=== PATIENT | male | born 1930 | race Caucasian/White ===

== ENCOUNTER 2017-10-25 16:12 | Emergency (ER) | payer MEDICARE, OTHER ==
--- NOTE | 2017-10-25 16:59 | ED ---
ENT HPI - General Source: patient, RN notes reviewed, old records reviewed Mode of arrival: wheelchair Limitations: no limitations <Ekta Johnson - Last Filed: 10/25/17 19:10> <Avi Santoro - Last Filed: 10/25/17 19:31> - General Chief complaint: Dental/Oral Stated complaint: Left side face numb Time Seen by Provider: 10/25/17 16:36 - History of Present Illness Initial comments: This Patient is an 87-year-old male with a history of atrial fibrillation one week after a dental procedure, a filling on his right molar #3 presents emergency department today chief complaint of intermittent abdominal pain radiating from the upper and lower teeth. He reports he's also been having some left ear pain. Patient states that he has no chest pain or shortness of breath. He has had a stroke and has had chronic left-sided facial droop. Patient reports that this is nothing new or changed. He denies any other symptoms including headache or fever or chills. He states that he feels like some of his cheeks are swelling. Denies any nausea or vomiting. He has been taking his Coumadin. He does have his level checked frequently by Dr. Tejada. ( Ekta Johnson) - Related Data Previous Rx's Medication Instructions Recorded Penicillin V Potassium [Pen Vee K] 500 mg PO QID #40 tablet 10/25/17 Allergies Allergy/AdvReac Type Severity Reaction Status Date / Time No Known Allergies Allergy Verified 10/25/17 16:19 Review of Systems ROS Other: All systems not noted in ROS Statement are negative. <Ekta Johnson - Last Filed: 10/25/17 19:10> ROS Other: All systems not noted in ROS Statement are negative. <Avi Santoro - Last Filed: 10/25/17 19:31> ROS Statement: Those systems with pertinent positive or pertinent negative responses have been documented in the HPI. 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 Absent: scleral icterus, conjunctival injection, periorbital swelling ENT exam: Present: normal exam, mucous membranes moist, other (Patient has very poor dentition. He does have evidence of a left-sided facial droop. Patient reports that chronic. I asked the son and he also states that that is chronic. No acute changes.). Absent: normal oropharynx (Patient is reported dentition. Recent filling over tooth #3. He has multiple dental caries and rotted teeth on the upper left and lower left jaw.) Neck exam: Present: normal inspection. Absent: tenderness, meningismus, lymphadenopathy Respiratory exam: Present: normal lung sounds bilaterally. Absent: respiratory distress, wheezes, rales, rhonchi, stridor Cardiovascular Exam: Present: regular rate, normal rhythm, normal heart sounds. Absent: systolic murmur, diastolic murmur, rubs, gallop, clicks GI/Abdominal exam: Present: soft, normal bowel sounds. Absent: distended, tenderness, guarding, rebound, rigid Extremities exam: Present: normal inspection, full ROM, normal capillary refill. Absent: tenderness, pedal edema, joint swelling, calf tenderness Back exam: Present: normal inspection Neurological exam: Present: alert, oriented X3, CN II-XII intact Psychiatric exam: Present: normal affect Skin exam: Present: warm, dry, intact, normal color. Absent: rash <Ekta Johnson - Last Filed: 10/25/17 19:10> <Avi Santoro - Last Filed: 10/25/17 19:31> - General Exam Comments Initial Comments: 87-year-old male. Alert and oriented no acute distress. (Ekta Johnson) Course <Ekta Johnson - Last Filed: 10/25/17 19:10> <Avi Santoro - Last Filed: 10/25/17 19:31> Vital Signs 10/25/17 10/25/17 16:16 18:00 Temperature 98.4 F 98.6 F Pulse Rate 102 H 99 Respiratory 20 16 Rate Blood Pressure 183/70 176/80 O2 Sat by Pulse 96 98 Oximetry - Reevaluation(s) Reevaluation #1: 10/25/17 19:28 PA supervision: I personally evaluate the patient and examined the patient. I reviewed and agree with the PAs findings including all diagnostic interpretations and treatment plans as written was otherwise stated. He did also discuss the findings with the patient's son who was present. I also did review the EKG which did show atrial fibrillation. (Avi Santoro) Medical Decision Making <Ekta Johnson - Last Filed: 10/25/17 19:10> <Avi Santoro - Last Filed: 10/25/17 19:31> - Medical Decision Making 79-year-old male with history of A. fib presents today with left-sided tooth dental pain. He does have a history of stroke with chronic left-sided facial droop after a stroke. This family reports that it is chronic. He has no other focal neurological findings. He does have very poor dentition. Likely infection from his teeth are causing the pain. Patient was evaluated by myself and Dr. Santoro. We did perform an EKG which shows A. fib with no acute changes. This is stable for the Patient. Patient will be started on Pen-Vee K and prescription will be written for and I discussed following up with his PCP. Continuing Tylenol for the pain. Patient's family agrees treatment plan will comply. Return parameters were discussed. (Ekta Johnson) 10/25/17 18:07 EKG shows atrial fibrillation. Abnormal EKG. She remained on this for many repair of ECTOPY QRS ration 80. QT QTC 370/450. (Ekta Johnson) Disposition Is patient prescribed a controlled substance at d/c from ED?: No When asked, does pt state using other controlled substances?: No If prescribed controlled substance>3 days was MAPS reviewed?: No If opioid is for acute pain is fill amount 7 days or less?: No If Rx opioid, was Start Talking consent form obtained?: No Time of Disposition: 17:34 <Ekta Johnson - Last Filed: 10/25/17 19:10> Is patient prescribed a controlled substance at d/c from ED?: No <Avi Santoro - Last Filed: 10/25/17 19:31> Clinical Impression: Pain, dental, Chronic atrial fibrillation Disposition: HOME SELF-CARE Condition: Good Instructions: Toothache (ED) Additional Instructions: Patient advised to follow-up with primary care physician. Take the antibiotics and as prescribed. Follow-up with your dentist. Return to emergency department if any alarming signs or symptoms occur. Prescriptions: Penicillin V Potassium [Pen Vee K] 500 mg PO QID #40 tablet Referrals: Gurmeet Tejada MD [Primary Care Provider] - 1-2 days
[2017-10-25] MEDS ORDERED: PENICILLIN VK 500MG STARTER 4 TAB BTL PO STA (17:43)
[2017-10-25 18:01] VITALS: BP 176/80; PULSE 99; RESP 16; TEMP 98.6
== END 2017-10-25 18:00 | disposition home or self-care (01) ==
LOC: EC 16:12
DX: I48.91 Unspecified atrial fibrillation (principal); K08.89 Other specified disorders of teeth and supporting structures; H92.02 Otalgia, left ear; Z86.73 Personal history of transient ischemic attack (TIA), and cerebral infarction without residual deficits; Z87.891 Personal history of nicotine dependence
CPT/HCPCS: 93005; 99284

== ENCOUNTER 2018-12-09 12:55 | Inpatient (IN) | payer MEDICARE, OTHER ==
[2018-12-09] MEDS ORDERED: DIPH,PERTUS(ACELL)TETVAC-LF 0.5 ML VIAL IM ONE (13:07)
--- NOTE | 2018-12-09 13:15 | ED ---
General Adult HPI - General Stated complaint: TRAUMA Time Seen by Provider: 12/09/18 12:56 Source: patient, EMS, RN notes reviewed Mode of arrival: EMS Limitations: no limitations - History of Present Illness Initial comments: Patient is a pleasant 88-year-old male presenting to the emergency department following a fall. Patient fell to steps at his house. Patient states he must lost his footing. Patient is on blood thinners. Patient denies any head injury or loss of consciousness. No neck pain. Patient does have some chronic back pain. No change in chronic back pain. No abdominal pain. No dyspnea. Patient did sustain an abrasion to his left arm. Patient has difficulty providing history. Patient states he hurts all over. Patient did complain of some dizziness to EMS. Patient did have a syncopal episode that lasted between 1 and 2 minutes while in route by EMS. 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 - Related Data Home Medications Medication Instructions Recorded Confirmed Acetaminophen Tab [Tylenol Tab] 500 mg PO TID PRN 12/09/18 12/09/18 Metoprolol Succinate (ER) [Toprol 25 mg PO HS 12/09/18 12/09/18 Xl] Rosuvastatin [Crestor] 10 mg PO HS 12/09/18 12/09/18 Tamsulosin HCl [Flomax] 0.4 mg PO HS 12/09/18 12/09/18 Warfarin [Coumadin] 1 mg PO TH 12/09/18 12/09/18 Warfarin [Coumadin] 2 mg PO SUMOTUWEFRSA 12/09/18 12/09/18 Allergies Allergy/AdvReac Type Severity Reaction Status Date / Time No Known Allergies Allergy Verified 12/09/18 13:31 Review of Systems ROS Statement: Those systems with pertinent positive or pertinent negative responses have been documented in the HPI. ROS Other: All systems not noted in ROS Statement are negative. 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 Absent: nystagmus ENT exam: Present: normal oropharynx Neck exam: Present: normal inspection. Absent: tenderness Respiratory exam: Present: normal lung sounds bilaterally. Absent: chest wall tenderness Cardiovascular Exam: Present: tachycardia, irregular rhythm GI/Abdominal exam: Present: soft. Absent: tenderness Extremities exam: Present: full ROM. Absent: tenderness Back exam: Present: normal inspection. Absent: tenderness Neurological exam: Present: alert, oriented X3, CN II-XII intact (Except for right-sided facial droop which patient states is chronic.) Expanded Speech: Present: fluid speech Cranial nerves: EOM's Intact: Normal Sensory exam: Upper Extremity Light Touch: Normal, Lower Extremity Light Touch: Normal Motor strength exam: RUE: 5, LUE: 5, RLE: 4, LLE: 4 Eye Response: (4) open spontaneously Motor Response: (6) obeys commands Verbal Response: (5) oriented Psychiatric exam: Present: normal affect, normal mood Skin exam: Present: normal color, abrasion (Left forearm) Course - Reevaluation(s) Reevaluation #1: 12/09/18 13:13 Case was discussed with Dr. yepez immediately upon patient arrival. EKG Findings - EKG Comments: EKG Findings:: A. fib with rate of 106. QRS 96. QT 294. QTC 390. Normal axis. Normal QRS. Inferior and lateral T wave inversion. Medical Decision Making - Medical Decision Making Patient reevaluated and resting comfortably in bed. Patient and family are updated on results and plan. Patient is cleared from needed admission on a trauma standpoint at 2:35 PM. It is unclear if L1 compression fracture is new or old. Patient states he does have a known history of previous compression fracture however is unclear which location. Patient believes it may have been L4 however is not certain regarding this. Patient does not need to be admitted for L1 compression. Patient is being admitted for syncope evaluation. Case was discussed in detail with Dr. farmer, who will admit for Dr. Tejada. - Lab Data Result diagrams: 12/09/18 13:10 12/09/18 13:10 Lab Results 12/09/18 12/09/18 12/09/18 Range/Units 13:10 13:10 13:10 WBC 5.3 (3.8-10.6) k/uL RBC 4.10 L (4.30-5.90) m/uL Hgb 12.5 L (13.0-17.5) gm/dL Hct 40.2 (39.0-53.0) % MCV 98.0 (80.0-100.0) fL MCH 30.6 (25.0-35.0) pg MCHC 31.2 (31.0-37.0) g/dL RDW 13.7 (11.5-15.5) % Plt Count 150 (150-450) k/uL Neutrophils % 59 % Lymphocytes % 30 % Monocytes % 7 % Eosinophils % 1 % Basophils % 1 % Neutrophils # 3.2 (1.3-7.7) k/uL Lymphocytes # 1.6 (1.0-4.8) k/uL Monocytes # 0.4 (0-1.0) k/uL Eosinophils # 0.0 (0-0.7) k/uL Basophils # 0.0 (0-0.2) k/uL PT (9.0-12.0) sec INR (<1.2) APTT (22.0-30.0) sec Sodium 141 (137-145) mmol/L Potassium 4.7 (3.5-5.1) mmol/L Chloride 105 (98-107) mmol/L Carbon Dioxide 27 (22-30) mmol/L Anion Gap 9 mmol/L BUN 29 H (9-20) mg/dL Creatinine 1.58 H (0.66-1.25) mg/dL Est GFR (CKD-EPI)AfAm 44 (>60 ml/min/1.73 sqM) Est GFR (CKD-EPI)NonAf 38 (>60 ml/min/1.73 sqM) Glucose 118 H (74-99) mg/dL POC Glucose (mg/dL) (75-99) mg/dL POC Glu Cpas ID Plasma Lactic Acid Jaspreet (0.7-2.0) mmol/L Calcium 9.2 (8.4-10.2) mg/dL Total Bilirubin 0.6 (0.2-1.3) mg/dL AST 25 (17-59) U/L ALT 21 (21-72) U/L Alkaline Phosphatase 67 (38-126) U/L Total Creatine Kinase 65 (55-170) U/L CK-MB (CK-2) 0.7 (0.0-2.4) ng/mL CK-MB (CK-2) Rel Index 1.1 Troponin I <0.012 (0.000-0.034) ng/mL Total Protein 6.9 (6.3-8.2) g/dL Albumin 3.9 (3.5-5.0) g/dL Amylase 64 (30-110) U/L Lipase 190 (23-300) U/L Serum Alcohol <10 mg/dL Blood Type Blood Type Confirm Blood Type Recheck Antibody Screen Spec Expiration Date 12/09/18 12/09/18 12/09/18 Range/Units 13:10 13:10 13:10 WBC (3.8-10.6) k/uL RBC (4.30-5.90) m/uL Hgb (13.0-17.5) gm/dL Hct (39.0-53.0) % MCV (80.0-100.0) fL MCH (25.0-35.0) pg MCHC (31.0-37.0) g/dL RDW (11.5-15.5) % Plt Count (150-450) k/uL Neutrophils % % Lymphocytes % % Monocytes % % Eosinophils % % Basophils % % Neutrophils # (1.3-7.7) k/uL Lymphocytes # (1.0-4.8) k/uL Monocytes # (0-1.0) k/uL Eosinophils # (0-0.7) k/uL Basophils # (0-0.2) k/uL PT 25.2 H (9.0-12.0) sec INR 2.6 H (<1.2) APTT 29.9 (22.0-30.0) sec Sodium (137-145) mmol/L Potassium (3.5-5.1) mmol/L Chloride (98-107) mmol/L Carbon Dioxide (22-30) mmol/L Anion Gap mmol/L BUN (9-20) mg/dL Creatinine (0.66-1.25) mg/dL Est GFR (CKD-EPI)AfAm (>60 ml/min/1.73 sqM) Est GFR (CKD-EPI)NonAf (>60 ml/min/1.73 sqM) Glucose (74-99) mg/dL POC Glucose (mg/dL) (75-99) mg/dL POC Glu Cpas ID Plasma Lactic Acid Jaspreet 1.3 (0.7-2.0) mmol/L Calcium (8.4-10.2) mg/dL Total Bilirubin (0.2-1.3) mg/dL AST (17-59) U/L ALT (21-72) U/L Alkaline Phosphatase (38-126) U/L Total Creatine Kinase (55-170) U/L CK-MB (CK-2) (0.0-2.4) ng/mL CK-MB (CK-2) Rel Index Troponin I (0.000-0.034) ng/mL Total Protein (6.3-8.2) g/dL Albumin (3.5-5.0) g/dL Amylase (30-110) U/L Lipase (23-300) U/L Serum Alcohol mg/dL Blood Type O Positive Blood Type Confirm Blood Type Recheck CABO Indicated Antibody Screen NEGATIVE Spec Expiration Date 12/12/2018 - 230912/09/18 12/09/18 Range/Units 13:15 13:40 WBC (3.8-10.6) k/uL RBC (4.30-5.90) m/uL Hgb (13.0-17.5) gm/dL Hct (39.0-53.0) % MCV (80.0-100.0) fL MCH (25.0-35.0) pg MCHC (31.0-37.0) g/dL RDW (11.5-15.5) % Plt Count (150-450) k/uL Neutrophils % % Lymphocytes % % Monocytes % % Eosinophils % % Basophils % % Neutrophils # (1.3-7.7) k/uL Lymphocytes # (1.0-4.8) k/uL Monocytes # (0-1.0) k/uL Eosinophils # (0-0.7) k/uL Basophils # (0-0.2) k/uL PT (9.0-12.0) sec INR (<1.2) APTT (22.0-30.0) sec Sodium (137-145) mmol/L Potassium (3.5-5.1) mmol/L Chloride (98-107) mmol/L Carbon Dioxide (22-30) mmol/L Anion Gap mmol/L BUN (9-20) mg/dL Creatinine (0.66-1.25) mg/dL Est GFR (CKD-EPI)AfAm (>60 ml/min/1.73 sqM) Est GFR (CKD-EPI)NonAf (>60 ml/min/1.73 sqM) Glucose (74-99) mg/dL POC Glucose (mg/dL) 111 H (75-99) mg/dL POC Glu Cpas ID Coral, Margi Plasma Lactic Acid Jaspreet (0.7-2.0) mmol/L Calcium (8.4-10.2) mg/dL Total Bilirubin (0.2-1.3) mg/dL AST (17-59) U/L ALT (21-72) U/L Alkaline Phosphatase (38-126) U/L Total Creatine Kinase (55-170) U/L CK-MB (CK-2) (0.0-2.4) ng/mL CK-MB (CK-2) Rel Index Troponin I (0.000-0.034) ng/mL Total Protein (6.3-8.2) g/dL Albumin (3.5-5.0) g/dL Amylase (30-110) U/L Lipase (23-300) U/L Serum Alcohol mg/dL Blood Type Blood Type Confirm O Positive Blood Type Recheck Antibody Screen Spec Expiration Date - Radiology Data Radiology results: report reviewed (ET scan the brain reveals no acute manic injury. Computed tomography scan of the abdomen pelvis shows L1 fracture of indeterminate age.), image reviewed (Chest and pelvis x-rays show no acute process) Disposition Clinical Impression: Fall, Syncope Disposition: ADMITTED IP TO THIS HOSP Is patient prescribed a controlled substance at d/c from ED?: No Referrals: Gurmeet Tejada MD [Primary Care Provider] - 1-2 days Decision Time: 14:37
[2018-12-09 13:17] LABS: Glucose,Whole Blood 111 mg/dL (75-99)
[2018-12-09 13:25] LABS: Basophils % (A) 1 %; Eosinophils % (A) 1 %; HCT 40.2 % (39.0-53.0); HGB 12.5 gm/dL (13.0-17.5); Lymphocytes # (A) 1.6 k/uL (1.0-4.8); Lymphocytes % (A) 30 %; MCH 30.6 pg (25.0-35.0); MCHC 31.2 g/dL (31.0-37.0); Monocytes # (A) 0.4 k/uL (0-1.0); Monocytes % (A) 7 %; Neutrophils # (A) 3.2 k/uL (1.3-7.7); Neutrophils % (A) 59 %; Platelet Count 150 k/uL (150-450); RDW 13.7 % (11.5-15.5); WBC 5.3 k/uL (3.8-10.6)
[2018-12-09 13:33] LABS: INR 2.6 (<1.2); Prothrombin Time 25.2 sec (9.0-12.0)
[2018-12-09 13:34] LABS: Partial Thromboplastin Time 29.9 sec (22.0-30.0)
[2018-12-09 13:36] LABS: ALT 21 U/L (21-72); AST 25 U/L (17-59); African American GFR (CKD) 44 (>60 ml/min/1.73 sqM); Albumin 3.9 g/dL (3.5-5.0); Alcohol <10 mg/dL; Alkaline Phosphatase 67 U/L (38-126); Amylase 64 U/L (30-110); Anion Gap 9 mmol/L; Blood Urea Nitrogen 29 mg/dL (9-20); Calcium 9.2 mg/dL (8.4-10.2); Carbon Dioxide 27 mmol/L (22-30); Chloride 105 mmol/L (98-107); Glucose 118 mg/dL (74-99); Non-African American GFR(CKD) 38 (>60 ml/min/1.73 sqM); Potassium 4.7 mmol/L (3.5-5.1); Sodium 141 mmol/L (137-145); Total Bilirubin 0.6 mg/dL (0.2-1.3); Total Protein 6.9 g/dL (6.3-8.2)
--- NOTE | 2018-12-09 13:36 | XR ---
EXAMINATION TYPE: XR chest 1V portable DATE OF EXAM: 12/09/2018 HISTORY: trauma. REFERENCE: NONE. FINDINGS: Heart is mildly prominent. There is some minimal increased density adjacent to the left hea rt border. A limited infiltrate versus a epicardial fat-pad would need to BE considered. There is mil d interstitial change present this could BE acute or chronic. If this is acute pulmonary edema versus atypical pneumonia would need to BE considered. This is chronic pulmonary fibrosis should BE conside red. There is some blunting of the left CP angle. I cannot exclude a small left effusion. IMPRESSION: 1. SUBOPTIMAL EXAMINATION. 2. MILD CARDIOMEGALY. 3. LEFT CARDIOPHRENIC ANGLE DENSITY DESCRIBED ABOVE. PA AND LATERAL CHEST WOULD BE SUGGESTED WHEN THE PATIENT'S CLINICAL CONDITION PERMITS.
--- NOTE | 2018-12-09 13:37 | XR ---
EXAMINATION TYPE: XR pelvis AP view , 2 VIEWS DATE OF EXAM ORDERED: 12/09/2018 HISTORY: Trauma. COMPARISON: None. FINDINGS: The bones are osteopenic likely on the basis of osteoporosis. No fracture or dislocation i s seen. There are degenerative changes in the hips. There are degenerative changes in the lumbar spin e. IMPRESSION: NO ACUTE OSSEOUS LESION.
[2018-12-09 13:38] LABS: Creatine Kinase 65 U/L (55-170)
[2018-12-09 13:51] LABS: Creatine Kinase MB 0.7 ng/mL (0.0-2.4); Troponin I <0.012 ng/mL (0.000-0.034)
--- NOTE | 2018-12-09 14:03 | CT ---
EXAMINATION TYPE: CT brain wo con DATE OF EXAM: 12/09/2018 COMPARISON: None HISTORY: Fall downstairs Headache CT DLP: 1027.4 mGycm Automated exposure control for dose reduction was used. FINDINGS: There is diffuse cerebral cortical atrophy. There is no mass effect nor midline shift. There is no si gn of intracranial hemorrhage. Calvarium is intact. IMPRESSION: CEREBRAL ATROPHY. NO ACUTE INTRACRANIAL ABNORMALITY.
--- NOTE | 2018-12-09 14:09 | CT ---
EXAMINATION TYPE: CT abdomen pelvis w con DATE OF EXAM: 12/09/2018 COMPARISON: None HISTORY: Fall downstairs, back pain CT DLP: 437.8 mGycm Automated exposure control for dose reduction was used. TECHNIQUE: Helical acquisition of images was performed from the lung bases through the pelvis. CONTRAST: Performed without Oral Contrast and with IV Contrast, patient injected with 100 mL of Isovue 300. FINDINGS: There is coarse interstitial density at the lung bases. Heart is enlarged. There is no pleural effusi on. Liver shows no focal defect. Bile ducts are not dilated. Spleen appears normal. There is no pancreati c mass. There is no adrenal mass. There is mild renal cortical atrophy. There is no hydronephrosis. There is 3 mm calculus interpolar left kidney. There is no retroperitoneal adenopathy. Abdominal aorta is athe romatous. Bladder distends smoothly. There is no inguinal hernia. There are sigmoid diverticula. There is no si gn of diverticulitis. There is 50% compression deformity of L1 vertebral body. Age of this fracture i s not clear. There is narrowing of L4-5 disc space with vacuum disc and spur formation. There is oste openia. The bony pelvis appears intact. Appendix appears normal. IMPRESSION: FIBROTIC CHANGES AT THE LUNG BASES. CARDIOMEGALY. ATHEROSCLEROTIC VASCULAR DISEASE. COMPRESSION FRACTURE OF L1. RECOMMEND COMPARISON WITH OLD EXAMS. Age of this fracture is not clear.
[2018-12-09] MEDS ORDERED: MORPHINE SULFATE 4 MG/ML SYRINGE IV STA (14:16)
[2018-12-09] MEDS ORDERED: NALOXONE 0.4 MG/ML 1 ML VIAL IV PRN ×2 (14:37→16:45)
[2018-12-09] MEDS: traMADol 50 MG TAB PO PRN (16:52)
[2018-12-09] MEDS: SODIUM CHLORIDE 0.9% 1,000 ML IV SCH (17:00)
--- NOTE | 2018-12-09 17:28 | P.HPIM ---
History of Present Illness H&P Date: 12/09/18 Chief Complaint: Fall 88-year-old male presenting to the emergency department following a fall. Patient fell on the last 2 steps at his house, while he was trying to go to the bathroom. Patient states he must have lost his footing but he is not sure if he lost consciousness or felt dizzy before the fall. Patient is on Coumadin for atrial fibrillation. Patient states that he gets dizzy frequently especially when he gets up from the bed in the morning. His daughter stated that occasionally he gets some exertional chest pain that was not evaluated in the past. He does not follow with a rn hospital for his A. fib. He denied recent illness, fevers or chills. When he was in the ambulance he had a witnessed episode of loss of consciousness. This lasted for about 1-2 minutes. Currently he has back pain which is chronic, no neck pain. No abdominal pain. No dyspnea. Patient did sustain an abrasion to his left arm. In the emergency department all of his labs were unremarkable, he had computed tomography scan of the abdomen and pelvis, x-rays of the hip and computed tomography scan of the head and that was only showed possible compression fracture of L1. 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 History of Any Multi-Drug Resistant Organisms: None Reported Past Surgical History: Orthopedic Surgery Past Psychological History: No Psychological Hx Reported Smoking Status: Former smoker Past Alcohol Use History: None Reported Past Drug Use History: None Reported Medications and Allergies Home Medications Medication Instructions Recorded Confirmed Type Acetaminophen Tab [Tylenol Tab] 500 mg PO TID PRN 12/09/18 12/09/18 History Metoprolol Succinate (ER) [Toprol 25 mg PO HS 12/09/18 12/09/18 History Xl] Rosuvastatin [Crestor] 10 mg PO HS 12/09/18 12/09/18 History Tamsulosin HCl [Flomax] 0.8 mg PO HS 12/09/18 12/09/18 History Warfarin [Coumadin] 1 mg PO TH 12/09/18 12/09/18 History Warfarin [Coumadin] 2 mg PO SUMOTUWEFRSA 12/09/18 12/09/18 History Allergies Allergy/AdvReac Type Severity Reaction Status Date / Time No Known Allergies Allergy Verified 12/09/18 13:31 Physical Exam Vitals: Vital Signs Temp Pulse Resp BP Pulse Ox 12/09/18 16:00 98 F 82 18 168/84 97 Intake and Output 12/09/18 12/09/18 12/09/18 06:59 14:59 22:59 Other: Weight 61.5 kg Constitutional: No acute distress, conversant, pleasant Eyes:Anicteric sclerae, moist conjunctiva, no lid-lag, PERRLA, ENMT: Oropharynx clear, no erythema, exudates Neck: Supple, FROM, no masses, or JVD, No carotid bruits, No thyromegaly Lungs: Clear to auscultation, Clear to percussion, Normal respiratory effort, no accessory muscle use Cardiovascular: Tachycardic, irregularly irregular, no murmurs, gallops, or rubs, No peripheral edema Abdominal: Soft, Nontender, no guarding, rebound or rigidity, Normoactive bowel sounds, No hepatomegaly, No splenomegaly, No palpable mass Skin: Normal temperature, tone, texture, turgor, no induration, No subcutaneous nodules, No rash, lesions, No ulcers Extremities: No digital cyanosis, No clubbing, Pedal pulses intact and symmetrical, Radial pulses intact and symmetrical, No calf tenderness Psychiatric: Alert and oriented to person, place and time, appropriate affect, intact judgement Neuro: Muscles Strength 5/5 in all 4 extremities, Sensation to light touch grossly present throughout, Cranial nerves II-XII grossly intact, no focal sensory deficits Results CBC & Chem 7: 12/09/18 13:10 12/09/18 13:10 Labs: Abnormal Lab Results - Last 24 Hours (Table) 12/09/18 12/09/18 12/09/18 Range/Units 13:10 13:10 13:10 RBC 4.10 L (4.30-5.90) m/uL Hgb 12.5 L (13.0-17.5) gm/dL PT 25.2 H (9.0-12.0) sec INR 2.6 H (<1.2) BUN 29 H (9-20) mg/dL Creatinine 1.58 H (0.66-1.25) mg/dL Glucose 118 H (74-99) mg/dL POC Glucose (mg/dL) (75-99) mg/dL 12/09/18 Range/Units 13:15 RBC (4.30-5.90) m/uL Hgb (13.0-17.5) gm/dL PT (9.0-12.0) sec INR (<1.2) BUN (9-20) mg/dL Creatinine (0.66-1.25) mg/dL Glucose (74-99) mg/dL POC Glucose (mg/dL) 111 H (75-99) mg/dL Assessment and Plan Plan: Syncope and fall Admit to telemetry unit, likely secondary to A. fib, rule out ACS Cycle troponins Check orthostatic Echo Cardiology consult PT and OT once stable Atrial fibrillation with RVR Currently heart rate on the upper limit of normal We'll increase metoprolol dose to 50 twice a day Monitor blood pressure Benign prostatic hypertrophy Patient takes Flomax 0.8 mg daily which could contribute to orthostatic hypotension and falls Consider cutting down the dose Chronic back pain Hypertension, essential Stable Resume meds CODE STATUS: DO NOT RESUSCITATE/DO NOT INTUBATE Anticipated discharge: 12/11, home
[2018-12-09] MEDS: MORPHINE SULFATE 4 MG/ML SYRINGE IV PRN (19:57)
[2018-12-09] MEDS: TAMSULOSIN 0.4 MG CAP.ER.24H PO SCH (19:58)
[2018-12-09] MEDS: ATORVASTATIN 20 MG TAB PO SCH (19:58)
[2018-12-09] MEDS: METOPROLOL SUCCINATE (ER) 25 MG TAB.ER.24H PO SCH (19:58)
[2018-12-10] MEDS: traMADol 50 MG TAB PO PRN ×2 (04:44→13:14)
--- NOTE | 2018-12-10 08:21 | P.CNOR ---
History of Present Illness - [facility] Consult date: 12/10/18 Requesting physician: Suraj Moore Consult reason: low back pain, other (L1 compression fracture deformity of indeterminate age) History of present illness: Patient is a very pleasant 88-year-old male who is seen and examined at bedside for evaluation of his lumbar spine. Patient states he was having some exacerbation of back pain yesterday morning prior to [employer]. While at [employer] yesterday he fell falling on his back. He states he is not currently experiencing any significant exacerbation of back pain following his fall. He does not have any increased back pain with coughing or sneezing. He is known have chronic low back pain. He follows with his primary care provider in the outpatient setting and states he takes 6 tablets of Tylenol daily for pain control. He was brought to the emergency department after his fall further evaluation. He has been admitted for evaluation for possible syncopal episode. Patient states he is known have a previous compression fracture deformity of his lumbar spine in 1959 and states he wore bracing for 3 years following that f racture. He denies any other injuries. He currently denies any specific lower extremity weakness radiculopathy bilaterally. He does have generalized weakness in the lower extremities. He is able to move his lower extremities slowly but without difficulty. 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 History of Any Multi-Drug Resistant Organisms: None Reported Past Surgical History: Orthopedic Surgery Past Psychological History: No Psychological Hx Reported Smoking Status: Former smoker Past Alcohol Use History: None Reported Past Drug Use History: None Reported Medications and Allergies Home Medications Medication Instructions Recorded Confirmed Type Acetaminophen Tab [Tylenol Tab] 500 mg PO TID PRN 12/09/18 12/09/18 History Metoprolol Succinate (ER) [Toprol 25 mg PO HS 12/09/18 12/09/18 History Xl] Rosuvastatin [Crestor] 10 mg PO HS 12/09/18 12/09/18 History Tamsulosin HCl [Flomax] 0.8 mg PO HS 12/09/18 12/09/18 History Warfarin [Coumadin] 1 mg PO TH 12/09/18 12/09/18 History Warfarin [Coumadin] 2 mg PO SUMOTUWEFRSA 12/09/18 12/09/18 History Allergies Allergy/AdvReac Type Severity Reaction Status Date / Time No Known Allergies Allergy Verified 12/09/18 13:31 Physical Examination Physical exam: Patient is awake, alert, and oriented 3 Vital signs stable Good chest excursion with deep inspiration and expiration Examination of lumbar spine reveals skin is intact with no abrasions, lacerations, or bruises; no erythema, purulence or signs of infection No significant pain with palpation of the lumbar spine Patient does have some difficulty with rolling over in bed Dorsiflexion, plantarflexion, and extensor hallucis longus positive sustained bilaterally Lower extremity strength positive sustained bilaterally but generally weaker No lower extremity hyperreflexia bilaterally Straight leg test negative bilateral lower extremities Negative Lasegue's test bilaterally No signs or symptoms of DVT; no calf pain No pain with internal and external rotation of the hips bilaterally Neurovascularly intact Results Pertinent studies: CT abdomen and pelvis reviewed for orthopedic purposes: L1 wedge compression fracture deformity with approximately 50% height loss of the superior endplate with some sclerosis and appears to be chronic as there is also evidence of some anterior osteophytic spurring between T12 and L1; L1-2 retrolisthesis; L4-5 significant degenerative disc disease and vacuum disc phenomenon; L5-S1 vacuum disc phenomenon; osteopenia - Labs Labs: Abnormal Lab Results - Last 24 Hours (Table) 12/09/18 12/09/18 12/09/18 Range/Units 13:10 13:10 13:10 RBC 4.10 L (4.30-5.90) m/uL Hgb 12.5 L (13.0-17.5) gm/dL PT 25.2 H (9.0-12.0) sec INR 2.6 H (<1.2) BUN 29 H (9-20) mg/dL Creatinine 1.58 H (0.66-1.25) mg/dL Glucose 118 H (74-99) mg/dL POC Glucose (mg/dL) (75-99) mg/dL 12/09/18 Range/Units 13:15 RBC (4.30-5.90) m/uL Hgb (13.0-17.5) gm/dL PT (9.0-12.0) sec INR (<1.2) BUN (9-20) mg/dL Creatinine (0.66-1.25) mg/dL Glucose (74-99) mg/dL POC Glucose (mg/dL) 111 H (75-99) mg/dL H & H 12/09/18 Range/Units 13:10 Hgb 12.5 L (13.0-17.5) gm/dL Hct 40.2 (39.0-53.0) % Coagulation 12/09/18 Range/Units 13:10 INR 2.6 H (<1.2) Result Diagrams: 12/09/18 13:10 12/09/18 13:10 Assessment and Plan Assessment: Assessment: Chronic L1 compression fracture deformity Status post fall Possible syncopal episode Chronic low back pain L1-2 retrolisthesis L4-5 degenerative disc disease History of atrial fibrillation and hypertension (1) Compression fracture of L1 lumbar vertebra Current Visit: Yes Status: Acute Code(s): S32.010A - WEDGE COMPRESSION FRACTURE OF FIRST LUMBAR VERTEBRA, INIT SNOMED Code(s): 761252251 (2) Status post fall Current Visit: Yes Status: Acute Code(s): Z91.81 - HISTORY OF FALLING SNOMED Code(s): 166131471 (3) Spondylolisthesis, lumbar region Current Visit: Yes Status: Acute Code(s): M43.16 - SPONDYLOLISTHESIS, LUMBAR REGION SNOMED Code(s): 854767465763822 (4) Lumbar degenerative disc disease Current Visit: Yes Status: Acute Code(s): M51.36 - OTHER INTERVERTEBRAL DISC DEGENERATION, LUMBAR REGION SNOMED Code(s): 73944862 (5) Chronic low back pain Current Visit: Yes Status: Acute Code(s): M54.5 - LOW BACK PAIN; G89.29 - OTHER CHRONIC PAIN SNOMED Code(s): 380095134 (6) History of atrial fibrillation Current Visit: Yes Status: Acute Code(s): Z86.79 - PERSONAL HISTORY OF OTHER DISEASES OF THE CIRCULATORY SYSTEM SNOMED Code(s): 083950529 (7) History of hypertension Current Visit: Yes Status: Acute Code(s): Z86.79 - PERSONAL HISTORY OF OTHER DISEASES OF THE CIRCULATORY SYSTEM SNOMED Code(s): 404637156 (8) Syncope Current Visit: Yes Status: Acute Code(s): R55 - SYNCOPE AND COLLAPSE SNOMED Code(s): 963530103 Plan: Plan: 1. After reviewing of imaging, further discussion with the patient, and physical examination the patient, we will currently plan to continue with conservative treatment at this time. Patient does have evidence of an L1 compression fracture deformity which appears to be chronic on imaging. Patient also states he has a known history of previous lumbar compression fracture deformity in 1959 and he wore brace for approximately 3 years following that injury. He does not know of any other injuries to his lumbar spine. He is not experiencing any exacerbation of pain in his lumbar spine with coughing or sneezing. He is known to have chronic low back pain. He currently denies lower extremity radiculopathy or specific weakness of the bilateral lower extremities but does have generalized weakness. We're not currently planning for further imaging or surgical intervention of his lumbar spine. We will not currently plan for bracing. He is known have chronic low back pain and follows with his primary care provider for further treatment in outpatient setting for treatment. We discussed it is a good plan of care to continue following with his primary care provider for further treatment evaluation. Patient states given his age he is not looking for any interventional treatment in regards to his lumbar spine. He agrees he would like to continue with continued conservative treatment options. At this time, patient may follow-up with Cristian Bar PA-C or Dr. Scotty Sampson at [facility] on an as-needed basis following discharge. If his symptoms do not improve over time following discharge, he may call the office for follow-up appointment. 2. Patient will continue seeing by medicine and is awaiting consultation with cardiology for further evaluation for possible syncopal episode Time with Patient: Greater than 30 (Including obtaining history, physical examination, reviewing of imaging, and dictation.)
--- NOTE | 2018-12-10 09:27 | XR ---
EXAMINATION TYPE: XR chest 2V DATE OF EXAM: 12/10/2018 COMPARISON: 12/09/2018 INDICATION: Previous abnormal chest x-ray TECHNIQUE: Frontal and lateral views of the chest are obtained. FINDINGS: The heart size is enlarged. The pulmonary vasculature is normal. The lung findings are diminished. This appears improved. Some minimal linear opacities at the left ba se could be some atelectasis. IMPRESSION: 1. Cardiomegaly
--- NOTE | 2018-12-10 09:48 | P.PN ---
Subjective Progress Note Date: 12/10/18 Principal diagnosis: Fall The patient was having back pain this morning when he was repositioned. No chest pain or shortness of breath. No dizziness. Objective - Vital Signs Vital signs: Vital Signs Temp 97.8 F 12/10/18 04:00 Pulse 70 12/10/18 04:00 Resp 16 12/10/18 04:00 BP 128/61 12/10/18 04:00 Pulse Ox 97 12/10/18 07:53 Intake & Output 12/09/18 12/10/18 12/10/18 18:59 06:59 18:59 Intake Total 360 50 Output Total 100 130 Balance 260 -80 Weight 61.5 kg 65 kg Intake: Oral 360 50 Output: Urine 100 130 Other: Voiding Method Incontinent Incontinent # Voids 1 1 - Exam Constitutional: No acute distress, conversant, pleasant Eyes:Anicteric sclerae, moist conjunctiva, no lid-lag, PERRLA, ENMT: Oropharynx clear, no erythema, exudates Neck: Supple, FROM, no masses, or JVD, No carotid bruits, No thyromegaly Lungs: Clear to auscultation, Clear to percussion, Normal respiratory effort, no accessory muscle use Cardiovascular: Tachycardic, irregularly irregular, no murmurs, gallops, or rubs, No peripheral edema Abdominal: Soft, Nontender, no guarding, rebound or rigidity, Normoactive bowel sounds, No hepatomegaly, No splenomegaly, No palpable mass Skin: Normal temperature, tone, texture, turgor, no induration, No subcutaneous nodules, No rash, lesions, No ulcers Extremities: No digital cyanosis, No clubbing, Pedal pulses intact and symmetrical, Radial pulses intact and symmetrical, No calf tenderness Psychiatric: Alert and oriented to person, place and time, appropriate affect, intact judgement Neuro: Muscles Strength 5/5 in all 4 extremities, Sensation to light touch grossly present throughout, Cranial nerves II-XII grossly intact, no focal sensory deficits - Labs CBC & Chem 7: 12/09/18 13:10 12/09/18 13:10 Labs: Abnormal Lab Results - Last 24 Hours (Table) 12/09/18 12/09/18 12/09/18 Range/Units 13:10 13:10 13:10 RBC 4.10 L (4.30-5.90) m/uL Hgb 12.5 L (13.0-17.5) gm/dL PT 25.2 H (9.0-12.0) sec INR 2.6 H (<1.2) BUN 29 H (9-20) mg/dL Creatinine 1.58 H (0.66-1.25) mg/dL Glucose 118 H (74-99) mg/dL POC Glucose (mg/dL) (75-99) mg/dL 12/09/18 Range/Units 13:15 RBC (4.30-5.90) m/uL Hgb (13.0-17.5) gm/dL PT (9.0-12.0) sec INR (<1.2) BUN (9-20) mg/dL Creatinine (0.66-1.25) mg/dL Glucose (74-99) mg/dL POC Glucose (mg/dL) 111 H (75-99) mg/dL Assessment and Plan Plan: Syncope and fall Telemetry did not show any abnormalities since admission except for afib Troponins negative Orthostatics could not be checked secondary to bad back, patient is not able to get up Echo Cardiology consult PT and OT once stable Atrial fibrillation with RVR Currently heart rate on the upper limit of normal Metoprolol dose increased to 50 twice a day Monitor blood pressure Benign prostatic hypertrophy Patient takes Flomax 0.8 mg daily which could contribute to orthostatic hypotension and falls Consider cutting down the dose Chronic back pain Hypertension, essential Stable Resume meds CODE STATUS: DO NOT RESUSCITATE/DO NOT INTUBATE Anticipated discharge: 12/11, home
--- NOTE | 2018-12-10 10:50 | P.CRDCN ---
History of Present Illness Consult date: 12/10/18 Requesting physician: Charlene Mooney Consult reason: sycope Chief complaint: Fall, possible syncope History of present illness: This is an 88-year-old gentleman with history of chronic atrial fibrillation, hypertension, Aggarwal's palsy, who presented to the hospital after experiencing a fall. According to the patient, he was in [employer]ism, he felt the urge to go to the bathroom, he stood up and the next thing he recalls is waking up on the stairs. He denies recalling other or not he was dizzy, he denies any chest discomfort, the patient does state that he gets dizzy especially in the mornings when he first gets up. The patient does take Flomax for prostate issues, he states that he recently increased his Flomax to 2 tablets. 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 Tejada as his primary care doctor. The patient is on Coumadin for anticoagulation at home. His chest x-ray on presentation here was suboptimal, it did show some mild cardiomegaly.pelvic x- ray did not reveal any acute abnormality.CAT scan of the brain revealed some cerebral atrophy with no acute intracranial abnormality.CAT scan of the abdomen and pelvis was performed which revealed fibrotic changes at the lung bases, cardiomegaly, atherosclerotic vascular disease.EKG shows atrial fibrillation with moderately rapid ventricular response.chest x-ray repeated shows cardiomegaly.blood pressure on admission here 168/80 with a heart rate in the 80s, 97% on 2 L of oxygen.blood pressure this morning 128/60 with a heart rate of 70, 97% on 2 L of oxygen.White blood cell count 5.3, hemoglobin 12.5, platelet count 150. INR 2.6. Sodium 141, potassium 4.7, BUN 29 and creatinine 1.5.troponins are negative 3. Serum alcohol less than 10.at the time of my examination this morning, patient is complaining of some back discomfort, he also feels quite tired this morning. No other complaints at present. We will obtain an echocardiogram with Doppler study, resume the patient's Coumadin and check orthostatics. 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 History of Any Multi-Drug Resistant Organisms: None Reported Past Surgical History: Orthopedic Surgery Past Psychological History: No Psychological Hx Reported Smoking Status: Former smoker Past Alcohol Use History: None Reported Past Drug Use History: None Reported Medications and Allergies Home Medications Medication Instructions Recorded Confirmed Type Acetaminophen Tab [Tylenol Tab] 500 mg PO TID PRN 12/09/18 12/09/18 History Metoprolol Succinate (ER) [Toprol 25 mg PO HS 12/09/18 12/09/18 History Xl] Rosuvastatin [Crestor] 10 mg PO HS 12/09/18 12/09/18 History Tamsulosin HCl [Flomax] 0.8 mg PO HS 12/09/18 12/09/18 History Warfarin [Coumadin] 1 mg PO TH 12/09/18 12/09/18 History Warfarin [Coumadin] 2 mg PO SUMOTUWEFRSA 12/09/18 12/09/18 History Allergies Allergy/AdvReac Type Severity Reaction Status Date / Time No Known Allergies Allergy Verified 12/09/18 13:31 Physical Exam Vitals: Vital Signs Temp Pulse Resp BP Pulse Ox 12/10/18 07:53 97 12/10/18 04:00 97.8 F 70 16 128/61 99 12/10/18 03:52 18 12/09/18 23:52 97.7 F 72 16 91/65 100 12/09/18 20:00 89 18 12/09/18 19:51 98.5 F 89 18 138/63 98 12/09/18 16:00 98 F 82 18 168/84 97 Intake and Output 12/09/18 12/10/18 12/10/18 22:59 06:59 14:59 Intake Total 360 50 Output Total 180 50 Balance 180 0 Intake: Oral 360 50 Output: Urine 180 50 Other: Voiding Method Incontinent Incontinent # Voids 1 1 Weight 65 kg PHYSICAL EXAMINATION: GENERAL:88-year-old gentleman in no acute distress at the time of my examination HEENT: Head is atraumatic, normocephalic. Pupils equal, round. Sclera anicteric. Conjunctiva are clear. Mucous membranes of the mouth are moist. Nec k is supple. There is no elevated jugular venous pressure.] bruit is heard. HEART EXAMINATION: [Heart S1, S2 irregularly irregular systolic murmur is heard.] CHEST EXAMINATION:[ Lungs are clear to auscultation and precussion. No chest wall tenderness is noted on palpation or with deep breathing.] ABDOMEN: [ Soft, nontender. Bowel sounds are heard. No organomegaly noted]. EXTREMITIES:[ 2+ peripheral pulses with no evidence of peripheral edema and no calf tenderness noted]. NEUROLOGIC [patient is awake, alert and oriented X3.] . Results 12/09/18 13:10 12/09/18 13:10 Cardiac Enzymes 12/09/18 12/09/18 12/09/18 Range/Units 13:10 13:10 18:21 AST 25 (17-59) U/L CK-MB (CK-2) 0.7 (0.0-2.4) ng/mL Troponin I <0.012 <0.012 (0.000-0.034) ng/mL 12/10/18 Range/Units 01:14 AST (17-59) U/L CK-MB (CK-2) (0.0-2.4) ng/mL Troponin I <0.012 (0.000-0.034) ng/mL Coagulation 12/09/18 Range/Units 13:10 PT 25.2 H (9.0-12.0) sec APTT 29.9 (22.0-30.0) sec CBC 12/09/18 Range/Units 13:10 WBC 5.3 (3.8-10.6) k/uL RBC 4.10 L (4.30-5.90) m/uL Hgb 12.5 L (13.0-17.5) gm/dL Hct 40.2 (39.0-53.0) % Plt Count 150 (150-450) k/uL Comprehensive Metabolic Panel 12/09/18 Range/Units 13:10 Sodium 141 (137-145) mmol/L Potassium 4.7 (3.5-5.1) mmol/L Chloride 105 (98-107) mmol/L Carbon Dioxide 27 (22-30) mmol/L BUN 29 H (9-20) mg/dL Creatinine 1.58 H (0.66-1.25) mg/dL Glucose 118 H (74-99) mg/dL Calcium 9.2 (8.4-10.2) mg/dL AST 25 (17-59) U/L ALT 21 (21-72) U/L Alkaline Phosphatase 67 (38-126) U/L Total Protein 6.9 (6.3-8.2) g/dL Albumin 3.9 (3.5-5.0) g/dL Current Medications Generic Name Dose Route Start Last Admin Trade Name Freq PRN Reason Stop Dose Admin Atorvastatin Calcium 20 mg 12/09/18 21:00 12/09/18 19:58 Lipitor PO 20 mg HS RYLEE Administration Sodium Chloride 1,000 mls @ 20 mls/hr 12/09/18 14:45 12/09/18 17:00 Saline 0.9% IV 20 mls/hr .Q24H RYLEE Administration Metoprolol Succinate 50 mg 12/09/18 21:00 12/09/18 19:58 Toprol Xl PO 50 mg HS RYLEE Administration Morphine Sulfate 3 mg 12/09/18 14:37 12/09/18 19:57 Morphine Sulfate (Inj) IV 3 mg Q4HR PRN Administration Severe Pain Naloxone HCl 0.2 mg 12/09/18 14:37 Narcan IV Q2M PRN Opioid Reversal Naloxone HCl 0.2 mg 12/09/18 16:45 Narcan IV Q2M PRN Opioid Reversal Tamsulosin HCl 0.8 mg 12/09/18 21:00 12/09/18 19:58 Flomax PO 0.8 mg HS RYLEE Administration Tramadol HCl 50 mg 12/09/18 14:37 12/10/18 04:44 Ultram PO 50 mg Q6H PRN Administration Moderate Pain Intake and Output 12/09/18 12/10/18 12/10/18 22:59 06:59 14:59 Intake Total 360 50 Output Total 180 50 Balance 180 0 Intake: Oral 360 50 Output: Urine 180 50 Other: Voiding Method Incontinent Incontinent # Voids 1 1 Weight 65 kg 12/09/18 13:10 12/09/18 13:10 EKG Interpretations (text) EKG shows atrial fibrillation with moderately rapid ventricular response Assessment and Plan Plan: assessment and plan #1 fall with possible syncope. Could be secondary to orthostatic hypotension, patient did increase his dose of Flomax recently. #2 atrial fibrillation, chronic persistent #3 hypertension history #4 hyperlipidemia plan We'll obtain orthostatic blood pressure and heart rate every shift. Resume the patient's Coumadin. Obtain echocardiogram with Doppler study. Further recommendations to follow. DNP note has been reviewed, I agree with a documented findings and plan of care. Patient was seen and examined.
[2018-12-10 10:53] VITALS: BMI 21.1
--- NOTE | 2018-12-10 11:34 | ECHOF ---
Referral Reason:a-fib MEASUREMENTS -------- HEIGHT: 175.3 cm WEIGHT: 64.9 kg BP: 128/61 RVIDd: 2.3 cm (< 3.3) IVSd: 1.3 cm (0.6 - 1.1) LVIDd: 5.1 cm (3.9 - 5.3) LVPWd: 1.3 cm (0.6 - 1.1) IVSs: 1.7 cm LVIDs: 3.8 cm LVPWs: 1.4 cm LAESV Index (A-L): 44.41 ml/m Ao Diam: 3.5 cm (2.0 - 3.7) AV Cusp: 1.8 cm (1.5 - 2.6) LA Diam: 4.3 cm (2.7 - 3.8) MV EXCURSION: 19.089 mm (> 18.000) MV EF SLOPE: 81 mm/s (70 - 150) EPSS: 1.6 cm AR PHT: 979 ms RAP: 5.00 mmHg RVSP: 30.58 mmHg FINDINGS -------- Atrial fibrillation. This was a technically difficult study with suboptimal views. The left ventricular size is normal. There is mild concentric left ventricular hypertrophy. Overa ll left ventricular systolic function is mild-moderately impaired with, an EF between 40 - 45 %. Ba gracie anterior LV wall motion is hypokinetic. Basal inferoseptal LV wall motion is hypokinetic. M id anterior LV wall motion is hypokinetic. Mid to basal inferiorlateral is hypokinetic The right ventricle is normal in size. LA is severely dilated >40 ml/m2 The right atrial size is normal. Lumason used Interatrial and interventricular septum intact. Aortic valve is trileaflet and is mildly thickened. There is mild aortic regurgitation. The mitral valve is normal. [id number] mitral regurgitation is present. The tricuspid valve appears structurally normal. Mild tricuspid regurgitation present. Right vent ricular systolic pressure is normal at < 35 mmHg. There is no pulmonic regurgitation present. The aortic root size is normal. IVC Not well visulized. There is no pericardial effusion. CONCLUSIONS -------- 1. Atrial fibrillation. 2. This was a technically difficult study with suboptimal views. 3. The left ventricular size is normal. 4. There is mild concentric left ventricular hypertrophy. 5. Overall left ventricular systolic function is mild-moderately impaired with, an EF between 40 - 45 %. 6. Basal anterior LV wall motion is hypokinetic. 7. Basal inferoseptal LV wall motion is hypokinetic. 8. Mid anterior LV wall motion is hypokinetic. 9. Mid to basal inferiorlateral is hypokinetic 10. The right ventricle is normal in size. 11. LA is severely dilated >40 ml/m2 12. The right atrial size is normal. 13. Lumason used 14. Interatrial and interventricular septum intact. 15. Aortic valve is trileaflet and is mildly thickened. 16. There is mild aortic regurgitation. 17. The mitral valve is normal. 18. Gvnx-af-oitlbvru mitral regurgitation is present. 19. The tricuspid valve appears structurally normal. 20. Mild tricuspid regurgitation present. 21. Right ventricular systolic pressure is normal at < 35 mmHg. 22. There is no pulmonic regurgitation present. 23. The aortic root size is normal. 24. IVC Not well visulized. 25. There is no pericardial effusion. DRAGLINE OPERATOR: Chantal Sauceda RDCS
[2018-12-10] MEDS: SODIUM CHLORIDE 0.9% 1,000 ML IV SCH (14:29)
[2018-12-10] MEDS: TAMSULOSIN 0.4 MG CAP.ER.24H PO SCH (19:49)
[2018-12-10] MEDS: ATORVASTATIN 20 MG TAB PO SCH (19:49)
[2018-12-10] MEDS: METOPROLOL SUCCINATE (ER) 25 MG TAB.ER.24H PO SCH (19:49)
[2018-12-11] MEDS ORDERED: SODIUM CHLORIDE 0.9% 500 ML 500 ML IV ONE (10:34)
--- NOTE | 2018-12-11 11:37 | P.PN ---
Subjective Progress Note Date: 12/11/18 Principal diagnosis: Fall BP dropped today to 70s systolic, patient seems to be tired. He doesn't have his hearing aid on. He is very weak according to daughter and will fall if he gets up. No pain reported, no sob. Objective - Vital Signs Vital signs: Vital Signs Temp 97.6 F 12/11/18 07:49 Pulse 63 12/11/18 07:49 Resp 16 12/11/18 07:49 BP 68/48 12/11/18 10:23 Pulse Ox 92 L 12/11/18 07:49 Intake & Output 12/10/18 12/11/18 12/11/18 18:59 06:59 18:59 Intake Total 400 320 Balance 400 320 Weight 65 kg Intake: Intake, IV Titration 100 100 Amount Sodium Chloride 0.9% 1, 100 100 000 ml @ 20 mls/hr IV . Q24H [facility] Rx#:[id number] Oral 300 220 Other: Voiding Method Incontinent Incontinent Incontinent # Voids 1 - Exam Constitutional: No acute distress, conversant, pleasant Eyes:Anicteric sclerae, moist conjunctiva, no lid-lag, PERRLA, ENMT: Oropharynx clear, no erythema, exudates Neck: Supple, FROM, no masses, or JVD, No carotid bruits, No thyromegaly Lungs: Clear to auscultation, Clear to percussion, Normal respiratory effort, no accessory muscle use Cardiovascular: Tachycardic, irregularly irregular, no murmurs, gallops, or rubs, No peripheral edema Abdominal: Soft, Nontender, no guarding, rebound or rigidity, Normoactive bowel sounds, No hepatomegaly, No splenomegaly, No palpable mass Skin: Normal temperature, tone, texture, turgor, no induration, No subcutaneous nodules, No rash, lesions, No ulcers Extremities: No digital cyanosis, No clubbing, Pedal pulses intact and symmetrical, Radial pulses intact and symmetrical, No calf tenderness Psychiatric: Alert and oriented to person, place and time, appropriate affect, intact judgement Neuro: Muscles Strength 5/5 in all 4 extremities, Sensation to light touch grossly present throughout, Cranial nerves II-XII grossly intact, no focal sensory deficits - Labs CBC & Chem 7: 12/09/18 13:10 12/09/18 13:10 Assessment and Plan Plan: Syncope and fall Could be sec to rapid afib vs. orthostatic hypotension due to flomax. Troponins negative Orthostatics could not be checked secondary to bad back, patient is not able to get up Echo with multiple abnormalities noted. EF 40-45%. Cardiology following PT and OT once stable Atrial fibrillation with RVR Cardio managing Hypotension New onset Will send stat labs. CBC, CMP, Trops, ekg Fluid bolus. Benign prostatic hypertrophy Patient takes Flomax 0.8 mg daily which could contribute to orthostatic hypotension and falls Patient states he can't urinate without flomax. Chronic back pain Hypertension, essential Stable Resume meds CODE STATUS: DO NOT RESUSCITATE/DO NOT INTUBATE Anticipated discharge: 12/12, rehab
[2018-12-11 12:22] LABS: HCT 31.8 % (39.0-53.0); HGB 10.4 gm/dL (13.0-17.5); MCH 32.4 pg (25.0-35.0); MCHC 32.7 g/dL (31.0-37.0); MCV 99.1 fL (80.0-100.0); Mean Platelet Volume 7.5; Platelet Count 127 k/uL (150-450); RBC 3.21 m/uL (4.30-5.90); RDW 13.5 % (11.5-15.5); WBC 6.8 k/uL (3.8-10.6)
[2018-12-11 12:31] LABS: Calcium 8.5 mg/dL (8.4-10.2); Phosphorus 3.1 mg/dL (2.5-4.5); Potassium 4.9 mmol/L (3.5-5.1); Total Bilirubin 0.8 mg/dL (0.2-1.3); Total Protein 5.7 g/dL (6.3-8.2)
[2018-12-11] MEDS: SODIUM CHLORIDE 0.9% 1,000 ML IV SCH (12:58)
--- NOTE | 2018-12-11 14:02 | P.PN ---
Subjective Progress Note Date: 12/11/18 This is an 88-year-old gentleman with history of chronic atrial fibrillation, hypertension, Aggarwal's palsy, who presented to the hospital after experiencing a fall. According to the patient, he was in [employer]ian[employer], he felt the urge to go to the bathroom, he stood up and the next thing he recalls is waking up on the stairs. He denies recalling other or not he was dizzy, he denies any chest discomfort, the patient does state that he gets dizzy especially in the mornings when he first gets up. The patient does take Flomax for prostate issues, he states that he recently increased his Flomax to 2 tablets. He does not follow with her autism teacher, he sees Dr. Tejada as his primary care doctor. The patient is on Coumadin for anticoagulation at home. His chest x-ray on presentation here was suboptimal, it did show some mild cardiomegaly.pelvic x- ray did not reveal any acute abnormality.CAT scan of the brain revealed some cerebral atrophy with no acute intracranial abnormality.CAT scan of the abdomen and pelvis was performed which revealed fibrotic changes at the lung bases, cardiomegaly, atherosclerotic vascular disease.EKG shows atrial fibrillation with moderately rapid ventricular response.chest x-ray repeated shows cardiomegaly.blood pressure on admission here 168/80 with a heart rate in the 80s, 97% on 2 L of oxygen.blood pressure this morning 128/60 with a heart rate of 70, 97% on 2 L of oxygen.White blood cell count 5.3, hemoglobin 12.5, platelet count 150. INR 2.6. Sodium 141, potassium 4.7, BUN 29 and creatinine 1.5.troponins are negative 3. Serum alcohol less than 10.at the time of my examination this morning, patient is complaining of some back discomfort, he also feels quite tired this morning. No other complaints at present. We will obtain an echocardiogram with Doppler study, resume the patient's Coumadin and check orthostatics. 12/11/2018 Patient was seen and examined this morning, blood pressure went down to 68/40, patient was symptomatic, felt dizzy, and very weak. He gave a fluid bolus of 500 mL, blood pressure came up nicely, patient was complaining of some mild chest pressure during the episode of hypotension and even extending into when his blood pressure improved. Pain very musculoskeletal in nature, chest wall and rib area very tender. EKG was performed which showed atrial fibrillation with no acute changes. I pressure 92/60 following the bolus, heart rate in the 70s, 93% on room air. Blood cell count 6.8, hemoglobin 10.4, platelet count 127. Sodium 138, potassium 4.9, BUN 33 and creatinine 1.4. Objective - Vital Signs Vital signs: Vital Signs Temp 97.6 F 12/11/18 07:49 Pulse 78 12/11/18 11:48 Resp 16 12/11/18 11:48 BP 92/59 12/11/18 11:48 Pulse Ox 93 L 12/11/18 11:48 Intake & Output 12/10/18 12/11/18 12/11/18 18:59 06:59 18:59 Intake Total 400 320 660 Balance 400 320 660 Weight 65 kg Intake: Intake, IV Titration 100 100 500 Amount Sodium Chloride 0.9% 1, 100 100 000 ml @ 20 mls/hr IV . Q24H [facility] Rx#:[id number] Sodium Chloride 0.9% 500 500 ml 500 ml @ 999 mls/hr IV .Q31M [facility] Rx#:[id number] Oral 300 220 160 Other: Voiding Method Incontinent Incontinent Incontinent # Voids 1 1 - Exam PHYSICAL EXAMINATION: GENERAL:88-year-old gentleman in no acute distress at the time of my examination HEENT: Head is atraumatic, normocephalic. Pupils equal, round. Sclera anicteric. Conjunctiva are clear. Mucous membranes of the mouth are moist. Neck is supple. There is no elevated jugular venous pressure. No carotid] bruit is heard. HEART EXAMINATION: Heart S1, S2 irregularly irregular systolic murmur is heard. CHEST EXAMINATION: Lungs are clear to auscultation and precussion. Positive chest wall tenderness is noted on palpation and with deep breathing. ABDOMEN: Soft, nontender. Bowel sounds are heard. No organomegaly noted. EXTREMITIES: 2+ peripheral pulses with no evidence of peripheral edema and no calf tenderness noted. NEUROLOGIC patient is awake, alert and oriented 3 - Labs CBC & Chem 7: 12/11/18 11:54 12/11/18 11:54 Labs: Abnormal Lab Results - Last 24 Hours (Table) 08/20/19 08/20/19 Range/Units 11:54 11:54 RBC 3.21 L (4.30-5.90) m/uL Hgb 10.4 L (13.0-17.5) gm/dL Hct 31.8 L (39.0-53.0) % Plt Count 127 L (150-450) k/uL BUN 33 H (9-20) mg/dL Creatinine 1.42 H (0.66-1.25) mg/dL Glucose 128 H (74-99) mg/dL ALT 13 L (21-72) U/L Total Protein 5.7 L (6.3-8.2) g/dL Albumin 3.0 L (3.5-5.0) g/dL Assessment and Plan Plan: assessment and plan #1 fall with possible syncope. Could be secondary to orthostatic hypotension, patient did increase his dose of Flomax recently. #2 atrial fibrillation, chronic persistent #3 hypertension history #4 hyperlipidemia plan Patient had significant hypotension earlier this morning, blood pressure 68/40, fluid bolus was given and patient blood pressure came up to 98 systolic. He was experiencing some chest wall pain, EKG was performed which showed A. fib with no acute changes. We will hold his beta maría completely, and decrease the dose of his Flomax to 0.4 mg. Continue to monitor for 24-48 hours. DNP note has been reviewed, I agree with a documented findings and plan of care. Patient was seen and examined.
[2018-12-11] MEDS: ATORVASTATIN 20 MG TAB PO SCH (19:35)
[2018-12-11] MEDS: TAMSULOSIN 0.4 MG CAP.ER.24H PO SCH (19:35)
[2018-12-12 06:37] LABS: INR 1.1 (<1.2)
--- NOTE | 2018-12-12 09:28 | P.PN ---
Subjective Progress Note Date: 12/12/18 Principal diagnosis: Fall Patient is having back pain still. He had an episode of chest pain and hypotension yesterday 12/11. BP came up with fluid bolus. No overnight issues. Objective - Vital Signs Vital signs: Vital Signs Temp 98.7 F 12/12/18 08:10 Pulse 98 12/12/18 08:10 Resp 16 12/12/18 08:10 BP 180/68 12/12/18 08:10 Pulse Ox 97 12/12/18 08:10 Intake & Output 12/11/18 12/12/18 12/12/18 18:59 06:59 18:59 Intake Total 660 240 240 Output Total 200 Balance 660 40 240 Weight 64.8 kg Intake: Intake, IV Titration 500 Amount Sodium Chloride 0.9% 500 500 ml 500 ml @ 999 mls/hr IV .Q31M [facility] Rx#:[id number] Oral 160 240 240 Output: Urine 200 Other: Voiding Method Incontinent Incontinent Incontinent # Voids 1 1 - Exam Constitutional: No acute distress, conversant, pleasant Eyes:Anicteric sclerae, moist conjunctiva, no lid-lag, PERRLA, ENMT: Oropharynx clear, no erythema, exudates Neck: Supple, FROM, no masses, or JVD, No carotid bruits, No thyromegaly Lungs: Clear to auscultation, Clear to percussion, Normal respiratory effort, no accessory muscle use Cardiovascular: Tachycardic, irregularly irregular, no murmurs, gallops, or rubs, No peripheral edema Abdominal: Soft, Nontender, no guarding, rebound or rigidity, Normoactive bowel sounds, No hepatomegaly, No splenomegaly, No palpable mass Skin: Normal temperature, tone, texture, turgor, no induration, No subcutaneous nodules, No rash, lesions, No ulcers Extremities: No digital cyanosis, No clubbing, Pedal pulses intact and symmetrical, Radial pulses intact and symmetrical, No calf tenderness Psychiatric: Alert and oriented to person, place and time, appropriate affect, intact judgement Neuro: Muscles Strength 5/5 in all 4 extremities, Sensation to light touch grossly present throughout, Cranial nerves II-XII grossly intact, no focal sensory deficits - Labs CBC & Chem 7: 12/11/18 11:54 12/11/18 11:54 Labs: Abnormal Lab Results - Last 24 Hours (Table) 12/11/18 12/11/18 Range/Units 11:54 11:54 RBC 3.21 L (4.30-5.90) m/uL Hgb 10.4 L (13.0-17.5) gm/dL Hct 31.8 L (39.0-53.0) % Plt Count 127 L (150-450) k/uL BUN 33 H (9-20) mg/dL Creatinine 1.42 H (0.66-1.25) mg/dL Glucose 128 H (74-99) mg/dL ALT 13 L (21-72) U/L Total Protein 5.7 L (6.3-8.2) g/dL Albumin 3.0 L (3.5-5.0) g/dL Assessment and Plan Plan: Syncope and fall Could be sec to rapid afib vs. orthostatic hypotension due to flomax. Troponins negative Orthostatics could not be checked secondary to bad back, patient is not able to get up Echo with multiple abnormalities noted. EF 40-45%. PT and OT Atrial fibrillation with RVR Cardio managing Metoprolol 25mg daily. Hypotension Resolved. Likely due to dehydration. All workup negative. Benign prostatic hypertrophy Decrease Flomax dose to 0.4 mg daily Chronic back pain Hypertension, essential Stable Resume meds CODE STATUS: DO NOT RESUSCITATE/DO NOT INTUBATE Anticipated discharge: 12/14, rehab
[2018-12-12] MEDS: METOPROLOL TARTRATE 25 MG TAB PO SCH (09:50)
--- NOTE | 2018-12-12 11:24 | P.PN ---
Subjective Progress Note Date: 12/12/18 This is an 88-year-old gentleman with history of chronic atrial fibrillation, hypertension, Aggarwal's palsy, who presented to the hospital after experiencing a fall. According to the patient, he was in mu-[employer], he felt the urge to go to the bathroom, he stood up and the next thing he recalls is waking up on the stairs. He denies recalling other or not he was dizzy, he denies any chest discomfort, the patient does state that he gets dizzy especially in the mornings when he first gets up. The patient does take Flomax for prostate issues, he states that he recently increased his Flomax to 2 tablets. He does not follow with her professor of communication arts, he sees Dr. Tejada as his primary care doctor. The patient is on Coumadin for anticoagulation at home. His chest x-ray on presentation here was suboptimal, it did show some mild cardiomegaly.pelvic x- ray did not reveal any acute abnormality.CAT scan of the brain revealed some cerebral atrophy with no acute intracranial abnormality.CAT scan of the abdomen and pelvis was performed which revealed fibrotic changes at the lung bases, cardiomegaly, atherosclerotic vascular disease.EKG shows atrial fibrillation with moderately rapid ventricular response.chest x-ray repeated shows cardiomegaly.blood pressure on admission here 168/80 with a heart rate in the 80s, 97% on 2 L of oxygen.blood pressure this morning 128/60 with a heart rate of 70, 97% on 2 L of oxygen.White blood cell count 5.3, hemoglobin 12.5, platelet count 150. INR 2.6. Sodium 141, potassium 4.7, BUN 29 and creatinine 1.5.troponins are negative 3. Serum alcohol less than 10.at the time of my examination this morning, patient is complaining of some back discomfort, he also feels quite tired this morning. No other complaints at present. We will obtain an echocardiogram with Doppler study, resume the patient's Coumadin and check orthostatics. 12/11/2018 Patient was seen and examined this morning, blood pressure went down to 68/40, patient was symptomatic, felt dizzy, and very weak. He gave a fluid bolus of 500 mL, blood pressure came up nicely, patient was complaining of some mild chest pressure during the episode of hypotension and even extending into when his blood pressure improved. Pain very musculoskeletal in nature, chest wall and rib area very tender. EKG was performed which showed atrial fibrillation with no acute changes. I pressure 92/60 following the bolus, heart rate in the 70s, 93% on room air. Blood cell count 6.8, hemoglobin 10.4, platelet count 127. Sodium 138, potassium 4.9, BUN 33 and creatinine 1.4. 12/12/2018 Patient seen and examined this morning, sitting up in the chair at bedside. Blood pressure 152/70, 180/68. Overall feeling much better, continues to have rib pain. Patient continues to be in atrial fibrillation heart rate in the 70s to 90s. He had been taking Coumadin for anticoagulation, we will check to see if the patient has coverage for Eliquis. Resume metoprolol 25 mg daily, continue with Flomax at 0.4 mg daily. We will also order some bilateral SUDEEP hose stockings for the patient. Objective - Vital Signs Vital signs: Vital Signs Temp 98.7 F 12/12/18 08:10 Pulse 98 12/12/18 08:10 Resp 16 12/12/18 08:10 BP 180/68 12/12/18 08:10 Pulse Ox 97 12/12/18 08:10 Intake & Output 12/11/18 12/12/18 12/12/18 18:59 06:59 18:59 Intake Total 660 240 240 Output Total 200 Balance 660 40 240 Weight 64.8 kg Intake: Intake, IV Titration 500 Amount Sodium Chloride 0.9% 500 500 ml 500 ml @ 999 mls/hr IV .Q31M [facility] Rx#:[id number] Oral 160 240 240 Output: Urine 200 Other: Voiding Method Incontinent Incontinent Incontinent # Voids 1 1 - Exam PHYSICAL EXAMINATION: GENERAL:88-year-old gentleman in no acute distress at the time of my examination HEENT: Head is atraumatic, normocephalic. Pupils equal, round. Sclera anicteric. Conjunctiva are clear. Mucous membranes of the mouth are moist. Neck is supple. There is no elevated jugular venous pressure. No carotid] bruit is heard. HEART EXAMINATION: Heart S1, S2 irregularly irregular systolic murmur is heard. CHEST EXAMINATION: Lungs are clear to auscultation and precussion. Positive chest wall tenderness is noted on palpation and with deep breathing. ABDOMEN: Soft, nontender. Bowel sounds are heard. No organomegaly noted. EXTREMITIES: 2+ peripheral pulses with no evidence of peripheral edema and no calf tenderness noted. NEUROLOGIC patient is awake, alert and oriented 3 - Labs CBC & Chem 7: 12/11/18 11:54 12/11/18 11:54 Labs: Abnormal Lab Results - Last 24 Hours (Table) 12/11/18 12/11/18 Range/Units 11:54 11:54 RBC 3.21 L (4.30-5.90) m/uL Hgb 10.4 L (13.0-17.5) gm/dL Hct 31.8 L (39.0-53.0) % Plt Count 127 L (150-450) k/uL BUN 33 H (9-20) mg/dL Creatinine 1.42 H (0.66-1.25) mg/dL Glucose 128 H (74-99) mg/dL ALT 13 L (21-72) U/L Total Protein 5.7 L (6.3-8.2) g/dL Albumin 3.0 L (3.5-5.0) g/dL Assessment and Plan Plan: assessment and plan #1 fall with possible syncope. Could be secondary to orthostatic hypotension, patient did increase his dose of Flomax recently. #2 atrial fibrillation, chronic persistent #3 hypertension history #4 hyperlipidemia Plan We will resume the metoprolol 25 mg daily, continue the Flomax at 0.4 mg daily. Check into Eliquis for anticoagulation. Order bilateral SUDEEP hose stockings. DNP note has been reviewed, I agree with a documented findings and plan of care. Patient was seen and examined.
[2018-12-12] MEDS: APIXABAN 2.5 MG TABLET PO SCH ×2 (12:22→20:13)
[2018-12-12] MEDS: traMADol 50 MG TAB PO PRN (12:40)
--- NOTE | 2018-12-12 16:07 | FL ---
EXAMINATION TYPE: FL barium swallow w video DATE OF EXAM: 12/12/2018 COMPARISON: NONE HISTORY: Difficulty with solids TECHNIQUE: Fluoroscopy. FINDINGS: Fluoroscopic guidance was provided for the procedure performed in conjunction with the [facility] pathology department. Please see complete report forthcoming from the Speech Pathology departmen t. Various consistencies from thin liquid to solids were administered. Fluoroscopy time 1 minute 59 seconds. Number of images: 0. No aspiration or penetration was evident. No significant pooling was observed in the vallecula. There may been slight hesitancy for swallow initiation. Swallowing sequence otherwise appear normal. IMPRESSION: 1. Essentially normal modified barium swallow
[2018-12-12] MEDS: SODIUM CHLORIDE 0.9% 1,000 ML IV SCH (20:09)
[2018-12-12] MEDS: TAMSULOSIN 0.4 MG CAP.ER.24H PO SCH (20:13)
[2018-12-12] MEDS: ATORVASTATIN 20 MG TAB PO SCH (20:13)
[2018-12-13 05:59] VITALS: RESP 16
[2018-12-13] MEDS: traMADol 50 MG TAB PO PRN ×2 (08:56→15:53)
[2018-12-13] MEDS: METOPROLOL TARTRATE 25 MG TAB PO SCH (08:57)
[2018-12-13] MEDS: APIXABAN 2.5 MG TABLET PO SCH ×2 (08:57→19:49)
--- NOTE | 2018-12-13 10:27 | P.PN ---
Subjective Progress Note Date: 12/13/18 Principal diagnosis: Fall Stable, doing well, no issues overnight. Objective - Vital Signs Vital signs: Vital Signs Temp 98.8 F 12/13/18 08:00 Pulse 87 12/13/18 08:00 Resp 16 12/13/18 08:00 BP 140/70 12/13/18 08:00 Pulse Ox 94 L 12/13/18 08:00 Intake & Output 12/12/18 12/13/18 12/13/18 18:59 06:59 18:59 Intake Total 720 480 Output Total 600 425 200 Balance 120 -425 280 Weight 64.8 kg 64.6 kg Intake: Oral 720 480 Output: Urine 600 425 200 Other: Voiding Method Incontinent Urinal Urinal Incontinent Incontinent # Voids 2 2 - Exam Constitutional: No acute distress, conversant, pleasant Eyes:Anicteric sclerae, moist conjunctiva, no lid-lag, PERRLA, ENMT: Oropharynx clear, no erythema, exudates Neck: Supple, FROM, no masses, or JVD, No carotid bruits, No thyromegaly Lungs: Clear to auscultation, Clear to percussion, Normal respiratory effort, no accessory muscle use Cardiovascular: Tachycardic, irregularly irregular, no murmurs, gallops, or rubs, No peripheral edema Abdominal: Soft, Nontender, no guarding, rebound or rigidity, Normoactive bowel sounds, No hepatomegaly, No splenomegaly, No palpable mass Skin: Normal temperature, tone, texture, turgor, no induration, No subcutaneous nodules, No rash, lesions, No ulcers Extremities: No digital cyanosis, No clubbing, Pedal pulses intact and symmetrical, Radial pulses intact and symmetrical, No calf tenderness Psychiatric: Alert and oriented to person, place and time, appropriate affect, intact judgement Neuro: Muscles Strength 5/5 in all 4 extremities, Sensation to light touch grossly present throughout, Cranial nerves II-XII grossly intact, no focal sensory deficits - Labs CBC & Chem 7: 12/11/18 11:54 12/11/18 11:54 Assessment and Plan Plan: Syncope and fall Could be sec to rapid afib vs. orthostatic hypotension due to flomax. Troponins negative Orthostatics could not be checked secondary to bad back, patient is not able to get up Echo with multiple abnormalities noted. EF 40-45%. PT and OT Atrial fibrillation with RVR Cardio managing Metoprolol 25mg daily. Hypotension Resolved. Likely due to dehydration. All workup negative. Benign prostatic hypertrophy Decrease Flomax dose to 0.4 mg daily Chronic back pain Hypertension, essential Stable Resume meds CODE STATUS: DO NOT RESUSCITATE/DO NOT INTUBATE Anticipated discharge: 12/14, rehab
--- NOTE | 2018-12-13 11:34 | PN ---
PROGRESS NOTE Mr. Blum is an 88-year-old male who has a history of chronic persistent atrial fibrillation, had a fall. He is complaining of neck discomfort. It is positional with some respirophasic chest pain. His breathing has been stable. He denies any dizziness or palpitation. His ventricular response is stable. He denies any nausea or vomiting. He denies any cough. He continues to be at this time on Eliquis 2.5 mg twice a day, Lipitor 20 mg daily, metoprolol tartrate 25 mg daily. PHYSICAL EXAMINATION: Blood pressure 140/70 with the heart rate in the 80s. He has differential pressure between the arms. LUNGS: Clear. HEART: Irregular, irregular. S1, S2. No S3. No rub. ABDOMEN: Soft, nontender. EXTREMITIES: No significant edema. LAB DATA: Lab data revealed BUN and creatinine 33 and 1.42. Hemoglobin of 10.4. IMPRESSION: 1. Chronic persistent atrial fibrillation, anticoagulated, rate controlled. 2. Episode of hypotension, stable. 3. Neck discomfort and chest discomfort, musculoskeletal. 4. Hyperlipidemia. RECOMMENDATION: From the cardiac standpoint, he is stable. We will continue present therapy. I would expect he should be able to be discharged home soon. MMODL / IJN: [id number] /
[2018-12-13] MEDS: MORPHINE SULFATE 4 MG/ML SYRINGE IV PRN (11:36)
[2018-12-13] MEDS: SODIUM CHLORIDE 0.9% 1,000 ML IV SCH (16:10)
[2018-12-13] MEDS: TAMSULOSIN 0.4 MG CAP.ER.24H PO SCH (19:49)
[2018-12-13] MEDS: ATORVASTATIN 20 MG TAB PO SCH (19:49)
[2018-12-14] MEDS: APIXABAN 2.5 MG TABLET PO SCH (09:29)
[2018-12-14] MEDS: METOPROLOL TARTRATE 25 MG TAB PO SCH (09:30)
[2018-12-14 09:36] VITALS: BP 134/58; PULSE 83; TEMP 98.4
--- NOTE | 2018-12-14 13:40 | P.DS ---
Providers Date of admission: 12/11/18 11:46 Expected date of discharge: 12/14/18 Attending physician: Charlene Mooney, Consults: 12/09/18 14:37 Consult Physician Urgent Consulting Provider: Jaleel Tyler Consult Reason/Comments: syncope Do you want consulting provider notified?: Yes 12/09/18 14:38 Consult Physician Urgent Consulting Provider: Tani Sampson Consult Reason/Comments: l1 fracture, age indeterminate Do you want consulting provider notified?: Yes Primary care physician: [facility] Course: 88-year-old male presenting to the emergency department following a fall. Patient fell on the last 2 steps at his house, while he was trying to go to the bathroom. Patient states he must have lost his footing but he is not sure if he lost consciousness or felt dizzy before the fall. Patient is on Coumadin for atrial fibrillation. Patient states that he gets dizzy frequently especially when he gets up from the bed in the morning. His daughter stated that occasionally he gets some exertional chest pain that was not evaluated in the past. He does not follow with a head transfer clerk for his A. fib. He denied recent illness, fevers or chills. When he was in the ambulance he had a witnessed episode of loss of consciousness. This lasted for about 1-2 minutes. Currently he has back pain which is chronic, no neck pain. No abdominal pain. No dyspnea. Patient did sustain an abrasion to his left arm. In the emergency department all of his labs were unremarkable, he had computed tomography scan of the abdomen and pelvis, x-rays of the hip and computed tomography scan of the head and that was only showed possible compression fracture of L1. Patient was admitted to the hospital, was placed on telemetry which showed persistent A. fib rate controlled. He was kept on metoprolol extended release 25 mg daily. Was seen by cardiology who recommended switching Coumadin to eliquis. He was also seen by orthopedics who did not recommend any surgical intervention in regards to the L1 compression fracture. Patient had an episode of hypotension during the hospitalization, this was thought to be secondary to dehydration. He was bolused with IV fluids and BP came right back up. In addition patient had issues with constipation and laxatives were added to his regimen. His Flomax dose was dropped in half from 0.8 mg 0.4 mg due to likely orthostatic hypotension, which was not documented due to difficulty standing patient up secondary to back pain. His back pain was treated with Tylenol, tramadol and morphine. He only required 1 dose of tramadol and one of morphine. Most pain control was achieved with Tylenol. He will only be discharged on that. He was seen by PT and OT who recommended rehab placement. This was discussed with care management. Patient will be discharged to rehab in stable condition. Time for discharge 35 minutes Plan - Discharge Summary New Discharge Prescriptions: New Apixaban [Eliquis] 2.5 mg PO BID 30 Days #60 tablet Tamsulosin [Flomax] 0.4 mg PO HS cap.er.24h Continue Rosuvastatin [Crestor] 10 mg PO HS Metoprolol Succinate (ER) [Toprol XL] 25 mg PO HS Discontinued Warfarin [Coumadin] 1 mg PO TH Warfarin [Coumadin] 2 mg PO SUMOTUWEFRSA Tamsulosin HCl [Flomax] 0.8 mg PO HS Acetaminophen Tab [Tylenol Tab] 500 mg PO TID PRN PRN Reason: Pain Discharge Medication List Metoprolol Succinate (ER) [Toprol XL] 25 mg PO HS 12/09/18 [History] Rosuvastatin [Crestor] 10 mg PO HS 12/09/18 [History] Apixaban [Eliquis] 2.5 mg PO BID 30 Days #60 tablet 12/14/18 [Rx] Tamsulosin [Flomax] 0.4 mg PO HS cap.er.24h 12/14/18 [Rx] Follow up Appointment(s)/Referral(s): Gurmeet Tejada MD [Primary Care Provider] - 12/21/18 3:30 pm (Monday) Cristian Bar PAC [PHYSICIAN COMMERCIAL INSULATOR] - As Needed (Patient may follow-up with Cristian Bar PA-C or Dr. Scotty Sampson at [facility] on an as-needed basis following discharge. ) Patient Instructions/Handouts: Syncope (DC)
== END 2018-12-14 12:02 | DRG 312 ==
LOC: EC 12:55 → 3SCARD 14:47 → OBSVTOIN 12-11 11:46
PROVIDERS: ADMIT Internal Medicine; ATTEND Internal Medicine
DX: I95.2 Hypotension due to drugs (principal); I48.1 Persistent atrial fibrillation; M48.56XA Collapsed vertebra, not elsewhere classified, lumbar region, initial encounter for fracture; E86.0 Dehydration; K59.00 Constipation, unspecified; T44.6X5A Adverse effect of alpha-adrenoreceptor antagonists, initial encounter; E78.5 Hyperlipidemia, unspecified; G89.29 Other chronic pain; I10 Essential (primary) hypertension; M43.16 Spondylolisthesis, lumbar region; M51.36 Other intervertebral disc degeneration, lumbar region; N40.0 Benign prostatic hyperplasia without lower urinary tract symptoms; R29.810 Facial weakness; W19.XXXA Unspecified fall, initial encounter; S40.812A Abrasion of left upper arm, initial encounter; Z66 Do not resuscitate; Z79.01 Long term (current) use of anticoagulants; Z79.899 Other long term (current) drug therapy; Z87.891 Personal history of nicotine dependence; Z91.81 History of falling
CPT/HCPCS: 36415; 70450; 71045; 71046; 72170; 74177; 74230; 80053; 80320; 82150; 82550; 82553; 83605; 83690; 83735; 84100; 84484; 85025; 85027; 85610; 85730; 86850; 86900; 86901; 90471; 90715; 93005; 93306; 94760; 96374; 99285

== ENCOUNTER 2018-12-15 02:44 | Emergency (ER) | payer MEDICARE, OTHER ==
[2018-12-15] MEDS ORDERED: ASPIRIN 81 MG PO STA (02:52)
[2018-12-15] MEDS ORDERED: NITROGLYCERIN SL TABS 0.4 MG TAB SUBLINGUAL STA (02:52)
--- NOTE | 2018-12-15 02:52 | ED ---
Chest Pain HPI - General Stated Complaint: Chest Pain Time Seen by Provider: 12/15/18 02:52 - History of Present Illness Initial Comments: Alfonso Blum is a pleasant 88-year-old gentleman presents the emergency department today for evaluation of chest pain. Patient was recently admitted for a syncopal event and during his hospitalization had pains in his neck chest and arms. Patient was evaluated by cardiology his Coumadin was changed eloquent with and he was subsequently discharged home. Patient reports that he was sleeping when he woke up to use the restroom and noted that the left side of his chest seemed to hurt. He told his nurses this and they immediately called 911 for transport to the hospital. Patient reported his pain a 3 out of 10 upon arrival. Pain is worse with movement or palp patient. Pain is not exertional, not associated with lightheadedness diaphoresis palpitations or shortness of breath. She reports he's been having this pain for a while however he seemed worse after he woke up and he wasn't sure if it was because of how he been sleeping. Patient's pain as previously been managed with Tylenol. - Related Data Home Medications Medication Instructions Recorded Confirmed Metoprolol Succinate (ER) [Toprol 25 mg PO HS 12/09/18 12/09/18 XL] Rosuvastatin [Crestor] 10 mg PO HS 12/09/18 12/09/18 Previous Rx's Medication Instructions Recorded Apixaban [Eliquis] 2.5 mg PO BID 30 Days #60 tablet 12/14/18 Tamsulosin [Flomax] 0.4 mg PO HS cap.er.24h 12/14/18 Allergies Allergy/AdvReac Type Severity Reaction Status Date / Time No Known Allergies Allergy Verified 12/09/18 13:31 Review of Systems ROS Statement: Those systems with pertinent positive or pertinent negative responses have been documented in the HPI. ROS Other: All systems not noted in ROS Statement are negative. EKG Findings - EKG Comments: EKG Findings:: KG was obtained due to complaint of left-sided chest pain, EKG was obtained at 2:50 AM, rate is 104 with his atrial fibrillation, QRS is 88, Q TC is [address] there is [address] acute [address] elevations or depressions there is no evidence of acute ischemia or infarction. 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 History of Any Multi-Drug Resistant Organisms: None Reported Past Surgical History: Orthopedic Surgery Past Psychological History: No Psychological Hx Reported Smoking Status: Former smoker Past Alcohol Use History: None Reported Past Drug Use History: None Reported Course Vital Signs 12/15/18 12/15/18 12/15/18 02:45 03:39 04:05 Temperature 98.4 F 100.5 F H Pulse Rate 101 H 88 73 Respiratory 16 16 16 Rate Blood Pressure 101/75 74/59 105/82 O2 Sat by Pulse 96 98 96 Oximetry 12/15/18 05:40 Temperature 98.9 F Pulse Rate 67 Respiratory 16 Rate Blood Pressure 115/85 O2 Sat by Pulse 97 Oximetry Chest Pain [facility] - MDM The patient was seen and evaluated, history is obtained from the patient and family at bedside Patient is a pleasant 88-year-old gentleman who had a syncopal episode of fall l ast week, he reports he's had constant chest wall pain and neck pain since that time however tonight was his first night the correction facility and when he complained of the pain in his chest and asked for Tylenol he was transferred here for cardiac evaluation EKG was nonischemic chest x-ray was unremarkable and initial troponin was negative, given the patient's advanced age and the fact that he has undergone a cardiac catheterization I did discuss with the patient and family options for repeat troponin at 3 hours versus admission for observation and evaluation by cardiology. Patient is very eager to continue his rehab and would like to go home this morning. A repeat troponin was ordered at 3 hours and was again negative. Patient was treated with the Lidoderm patch in the emergency department which he responded to well. Patient will be discharged back to his correction facility for continued rehab after his fall and plan for outpatient follow-up with cardiology. Disposition Clinical Impression: Atypical chest pain Disposition: HOME SELF-CARE Condition: Stable Instructions (If sedation given, give patient instructions): Costochondritis (ED) Is patient prescribed a controlled substance at d/c from ED?: No Referrals: Gurmeet Tejada MD [Primary Care Provider] - 1-2 days
[2018-12-15 03:11] LABS: Basophils % (A) 0 %; Eosinophils # (A) 0.1 k/uL (0-0.7); Eosinophils % (A) 1 %; HCT 31.2 % (39.0-53.0); HGB 10.2 gm/dL (13.0-17.5); Lymphocytes # (A) 1.4 k/uL (1.0-4.8); Lymphocytes % (A) 22 %; MCH 31.9 pg (25.0-35.0); MCHC 32.6 g/dL (31.0-37.0); MCV 97.8 fL (80.0-100.0); Mean Platelet Volume 7.5; Monocytes # (A) 0.6 k/uL (0-1.0); Monocytes % (A) 9 %; Neutrophils # (A) 4.3 k/uL (1.3-7.7); Neutrophils % (A) 65 %; Platelet Count 222 k/uL (150-450); RBC 3.19 m/uL (4.30-5.90); RDW 14.3 % (11.5-15.5); WBC 6.7 k/uL (3.8-10.6)
[2018-12-15 03:16] LABS: Prothrombin Time 10.3 sec (9.0-12.0)
[2018-12-15 03:36] LABS: Albumin 3.4 g/dL (3.5-5.0); Calcium 9.1 mg/dL (8.4-10.2); Magnesium 2.1 mg/dL (1.6-2.3); Potassium 4.5 mmol/L (3.5-5.1); Total Bilirubin 1.3 mg/dL (0.2-1.3); Total Protein 6.5 g/dL (6.3-8.2)
--- NOTE | 2018-12-15 04:02 | XR ---
EXAM: XR Chest, 2 Views CLINICAL HISTORY: Chest Pain TECHNIQUE: Frontal and lateral views of the chest. COMPARISON: 12/10/18 FINDINGS: Lungs: Unremarkable. No consolidation. Pleural space: Unremarkable. No pneumothorax. Heart: Cardiomegaly unchanged to prior study Mediastinum: Unremarkable. Bones/joints: Unremarkable. IMPRESSION: No acute abnormality in the chest
[2018-12-15 04:08] LABS: Appearance,Urine Clear (Clear); Bilirubin,Urine Negative (Negative); Blood,Urine Negative (Negative); Color,Urine Yellow; Glucose,Urine (UA) Negative (Negative); Ketones,Urine Trace (Negative); Leukocyte Esterase,Urine Negative (Negative); Nitrite,Urine Negative (Negative); PH, Urine 6.5 (5.0-8.0); Protein,Urine 1+ (Negative); RBC,Urine <1 /hpf (0-5); Specific Gravity,Urine 1.014 (1.001-1.035); Urobilinogen,Urine <2.0 mg/dL (<2.0)
[2018-12-15] MEDS ORDERED: ACETAMINOPHEN TAB 325 MG TAB PO STA (04:29)
[2018-12-15] MEDS ORDERED: LIDOCAINE 5% PATCH TOPICAL STA (04:29)
[2018-12-15 05:41] VITALS: BP 115/85
[2018-12-15 07:05] VITALS: PULSE 69; RESP 18; TEMP 98.8
--- NOTE | 2018-12-17 05:30 | CDI ---
Dear Katlyn Hernandez DO: Please do addendum Physical Examination. Thank you, Nikky Alvarez, Rocket Motor Mechanic. If you have any questions, please contact [employer] at [phone]. [facility]
== END 2018-12-15 07:20 | disposition home or self-care (01) ==
LOC: EC 02:44
DX: R07.89 Other chest pain (principal); I10 Essential (primary) hypertension; I48.91 Unspecified atrial fibrillation; Z87.891 Personal history of nicotine dependence; Z79.01 Long term (current) use of anticoagulants; Z79.899 Other long term (current) drug therapy; Z95.818 Presence of other cardiac implants and grafts; Z91.81 History of falling
CPT/HCPCS: 36415; 71046; 80053; 81001; 83735; 83880; 84484; 85025; 85610; 85730; 93005; 99285